=== PATIENT | female | born 1995 | race American Indian/Alaskan Native ===

== ENCOUNTER 2017-10-26 00:03 | Emergency (ER) | payer MEDICAID ==
[2017-10-26 00:51] LABS: Basophils # (Auto) 0.1 K/mm3 (0.0-0.1); Eosinophils # (Auto) 0.1 K/mm3 (0.0-0.4); Lymphocytes # (Auto) 0.9 K/mm3 (1.2-5.4); Lymphocytes % (Auto) 16.4 % (13.4-35.0); Mean Corpuscular HGB Conc 35 % (30-34); Mean Corpuscular Hemoglobin 32 pg (28-32); Mean Corpuscular Volume 90 fl (79-97); Monocytes # (Auto) 0.3 K/mm3 (0.0-0.8); Monocytes % (Auto) 5.8 % (0.0-7.3); Platelet Count 263 K/mm3 (140-440); Red Blood Count 3.78 M/mm3 (3.65-5.03); Red Cell Distribution Width 12.8 % (13.2-15.2)
[2017-10-26] MEDS ORDERED: NACL 0.9% 1000 ML 2,000 ML IV ONE (02:15)
[2017-10-26] MEDS ORDERED: NACL 0.9% 1000 ML 2,000 ML ONE (02:28)
--- NOTE | 2017-10-26 03:51 | Emergency Department Report ---
HPI - General Chief Complaint: Vaginal Bleeding Time Seen by Provider: 10/26/17 02:40 - HPI HPI: 22-year-old female presents to the emergency department with a complaint of heavy vaginal bleeding with clots over the past 4 days along with some lower abdominal and/or pelvic discomfort. She also has some associated nausea without vomiting and chills without confirmed fever. The patient had a medical 3 weeks ago in which she took a pill through a clinic. She felt that everything was going fine at that time and she had some steady vaginal bleeding after taking that pill and then it slowed up until 4 days ago. She otherwise does not have any past medical history. She tried some ibuprofen for her symptoms and her presentation without any relief. No recent travel or sick contacts at home. ED Past Medical Hx - Past Medical History Previous Medical History?: No Additional medical history: medical - Surgical History Past Surgical History?: No - Social History Smoking Status: Never Smoker Substance Use Type: None - Medications Home Medications: Home Medications Medication Instructions Recorded Confirmed Last Taken Type HYDROcodone/APAP 5-325 [[place] 1 - 2 each PO Q6H PRN #18 tablet 10/26/17 Unknown Rx 5/325] ED Review of Systems ROS: Stated complaint: VAG BLEEDING Other details as noted in HPI Comment: All other systems reviewed and negative Constitutional: denies: chills, fever Eyes: denies: eye pain, eye discharge, vision change ENT: denies: ear pain, throat pain Respiratory: denies: cough, shortness of breath, wheezing Cardiovascular: denies: chest pain, palpitations Gastrointestinal: abdominal pain, nausea. denies: vomiting Genitourinary: other (vaginal bleeding). denies: urgency, dysuria, discharge Musculoskeletal: denies: back pain, joint swelling, arthralgia Skin: denies: rash, lesions Neurological: denies: headache, weakness, paresthesias Physical Exam - Physical Exam Vital Signs: Vital Signs 10/26/17 00:17 Temperature 97.7 F Pulse Rate 107 H Respiratory 20 Rate Blood Pressure 114/79 O2 Sat by Pulse 97 Oximetry Physical Exam: GENERAL: The patient is well-developed well-nourished. HENT: Normocephalic. Atraumatic. Patient has moist mucous membranes. EYES: Extraocular motions are intact. Pupils equal reactive to light bilaterally. NECK: Supple. Trachea is midline. CHEST/LUNGS: Clear to auscultation. There is no respiratory distress noted. HEART/CARDIOVASCULAR: Regular. There is no tachycardia. There is no murmur. ABDOMEN: Abdomen is soft. Unable to reproduce lower abdominal and/or pelvic discomfort to palpation. No guarding. Patient has normal bowel sounds. There is no abdominal distention. SKIN: Skin is warm and dry. NEURO: The patient is awake, alert, and oriented. The patient is cooperative. The patient has no focal neurologic deficits. The patient has normal speech. MUSCULOSKELETAL: There is no tenderness or deformity. There is no limitation range of motion. There is no evidence of acute injury. ED Course Vital Signs 10/26/17 00:17 Temperature 97.7 F Pulse Rate 107 H Respiratory 20 Rate Blood Pressure 114/79 O2 Sat by Pulse 97 Oximetry - Reevaluation(s) Reevaluation #1: Patient says that she is uncomfortable and having some contraction-like pain. She is asking for stronger pain medication than Tylenol. I explained that if this ultrasound comes back showing that there is still possibly a live intrauterine , then narcotic pain medication could be detrimental to the fetus. Both the patient and her mother came back out saying that they have no intention of keeping this child, if it is even still viable, and would like the narcotic pain medication. 10/26/17 04:44 - Consultations Consultation #1: I spoke with the dough mixing machine operator for my [facility] service, Claire, who was into the case presentation including the imaging results. She recommends giving a dose of Methergine 0.2 mg 1 and follow-up with an [facility] as soon as possible. 10/26/17 19:56 ED Medical Decision Making - Lab Data Result diagrams: 10/26/17 00:30 - Radiology Data Radiology results: report reviewed PROCEDURE: US OB TRANSVAGINAL TECHNIQUE: Real-time transvaginal sonography of the uterus, placenta, amniotic fluid, adnexa, and fetus was performed with image documentation. Measurements were obtained to determine age/size. M-mode Doppler was used to document heartbeat. CPT 14824 HISTORY: vaginal bleeding, S/P medical , BHCG 3000 COMPARISON: No prior studies are available for comparison. FINDINGS: The uterus measures 12 x 5.5 x 7.3 centimeters. The endometrium is thickened at 21.5 millimeters and contains debris which could be retained products of conception and/or hemorrhage. There is no evidence of viable . Right ovary measures 3.6 x 2.1 x 2 centimeters contains a 2.2 centimeters cyst. Left ovary measures 2.7 x 1.8 x 2.1 centimeters. There is no free pelvic fluid. IMPRESSION: The endometrium is thickened at 21.5 millimeters and contains debris which could be retained products of conception and/or hemorrhage. There is no evidence of viable . The ovaries are unremarkable. There is no free pelvic fluid. Transcribed By: CO Dictated By: JEFFREY MCKINNON MD Electronically Authenticated By: JEFFREY MCKINNON MD Signed Date/Time: 10/26/17511 - Medical Decision Making The patient presents with a four-day history of heavy vaginal bleeding and some contraction-like abdominal/pelvic pain a few weeks after taking an pill. Hemoglobin stable at 12. Vital signs stable throughout her ED course including being afebrile. The patient was given some IV fluid resuscitation and pain medication. Ultrasound came back showing a thickened endometrium and some debris within the endometrium that could be products of retained conception versus hemorrhage. I spoke with the [facility] service who recommended a dose of Methergine and follow up with the [facility] service. The family understands that the Methergine may cause increased cramping/pain and increased bleeding for a short amount of time as the rest of the contents are expelled from the endometrium. She will return to the emergency department if any worsening of her symptoms, signs of symptomatic anemia, hemorrhage or with any acute distress. She was sent home with some pain medication. She had a urinalysis done and the results came back after my shift. I just called and left a voicemail to let her know of the UTI results and an antibiotic will be called in for her. - Differential Diagnosis products of retained conception, , incomplete , UTI Critical Care Time: No Critical care attestation.: If time is entered above; I have spent that time in minutes in the direct care of this critically ill patient, excluding procedure time. ED Disposition Clinical Impression: complicated with hemorrhage, Episode of heavy vaginal bleeding UTI (urinary tract infection) Qualifiers: Urinary tract infection type: acute cystitis Hematuria presence: without hematuria Qualified Code(s): N30.00 - Acute cystitis without hematuria Disposition: TO HOME OR SELFCARE Is pt being admited?: No Condition: Stable Additional Instructions: Please follow up with an [facility] as soon as possible. Return to the emergency department with any increase in your vaginal bleeding, worsening of your abdominal/pelvic pain, chest pain, shortness of breath, dizziness, or if any acute distress. You have been prescribed a medication that is sedating and therefore should not be taken prior to driving, working, and responsible for children and in no way should be mixed with alcohol of any quantity. Prescriptions: HYDROcodone/APAP 5-325 [[place] 5/325] 1 - 2 each PO Q6H PRN #18 tablet PRN Reason: Pain Referrals: [facility] [Provider Group] - [facility] [Provider Group] - [facility] [Provider Group] - [facility] Forms: Work/School Release Form(ED) Time of Disposition: 06:19
[2017-10-26] MEDS ORDERED: TYLENOL PO ONE (04:39)
[2017-10-26] MEDS ORDERED: MORPHINE IV ONE (04:45)
[2017-10-26] MEDS ORDERED: MORPHINE ONE (04:46)
--- NOTE | 2017-10-26 05:16 | Ultrasound Report ---
FINAL REPORT PROCEDURE: US OB TRANSVAGINAL TECHNIQUE: Real-time transvaginal sonography of the uterus, placenta, amniotic fluid, adnexa, and fetus was performed with image documentation. Measurements were obtained to determine age/size. M-mode Doppler was used to document heartbeat. CPT 01822 HISTORY: vaginal bleeding, S/P medical , BHCG 3000 COMPARISON: No prior studies are available for comparison. FINDINGS: The uterus measures 12 x 5.5 x 7.3 centimeters. The endometrium is thickened at 21.5 millimeters and contains debris which could be retained products of conception and/or hemorrhage. There is no evidence of viable . Right ovary measures 3.6 x 2.1 x 2 centimeters contains a 2.2 centimeters cyst. Left ovary measures 2.7 x 1.8 x 2.1 centimeters. There is no free pelvic fluid. IMPRESSION: The endometrium is thickened at 21.5 millimeters and contains debris which could be retained products of conception and/or hemorrhage. There is no evidence of viable . The ovaries are unremarkable. There is no free pelvic fluid.
--- NOTE | 2017-10-26 05:17 | Ultrasound Report ---
FINAL REPORT PROCEDURE: US OB TRANSABDOMINAL TECHNIQUE: Real-time transabdominal sonography of the uterus, placenta, amniotic fluid, adnexa, and fetus was performed with image documentation. Measurements were obtained to determine age/size. M-mode Doppler was used to document heartbeat. HISTORY: vaginal bleeding, S/P medical , BHCG 3000 COMPARISON: No prior studies are available for comparison. FINDINGS: The uterus measures 12 x 5.5 x 7.3 centimeters. The endometrium is thickened at 21.5 millimeters and contains debris which could be retained products of conception and/or hemorrhage. There is no evidence of viable . Right ovary measures 3.6 x 2.1 x 2 centimeters contains a 2.2 centimeters cyst. Left ovary measures 2.7 x 1.8 x 2.1 centimeters. There is no free pelvic fluid. IMPRESSION: The endometrium is thickened at 21.5 millimeters and contains debris which could be retained products of conception and/or hemorrhage. There is no evidence of viable . The ovaries are unremarkable. There is no free pelvic fluid.
[2017-10-26] MEDS ORDERED: NACL 0.9% 1000 ML 1,000 ML IV ONE (05:39)
[2017-10-26] MEDS ORDERED: DILAUDID IV ONE (05:39)
[2017-10-26] MEDS ORDERED: METHERGINE IM ONE (05:53)
[2017-10-26 08:03] LABS: Bilirubin,Urine NEG (Negative); Blood,Urine LG (Negative); Mucus,Urine FEW /HPF; Urobilinogen,Urine < 2.0 mg/dL (<2.0)
[2017-10-26 08:06] LABS: Color,Urine Amber (Yellow); RBC,Urine > 182.0 /HPF (0.0-6.0)
[2017-10-26 09:15] VITALS: BP 113/52
== END 2017-10-26 09:17 | disposition home or self-care (01) ==
LOC: ED 00:03
DX: N99.821 Postprocedural hemorrhage of a genitourinary system organ or structure following other procedure (principal); N30.00 Acute cystitis without hematuria
CPT/HCPCS: 36415; 76801; 76817; 81001; 84702; 85025; 86850; 86900; 86901; 96361; 96372; 96374; 96375; 99284; J1170; J2210; J2270; J7030